=== PATIENT | female | born 1945 | race Caucasian/White ===

== ENCOUNTER 2018-07-10 08:59 | Day surgery (SDC) ==
[2018-07-10] MEDS: TETRACAINE 0.5% UNIT-DOSE OP PRN ×2 (10:20→11:00)
[2018-07-10] MEDS: BETADINE OPTH PREP OP PRN ×2 (10:20→11:01)
[2018-07-10] MEDS: CYCLOGYL 2% OPTH OP PRN ×3 (10:21→10:31)
[2018-07-10] MEDS ORDERED: LIDOCAINE 1%/PHENYLEPHRINE 1.5% BSS (SURGERY) INTRAOCULA ONE (10:26)
[2018-07-10] MEDS ORDERED: ZOFRAN 4 MG/2 ML IVP ONE (10:26)
[2018-07-10] MEDS ORDERED: BRIMONIDINE TARTRATE 0.2% OPTH SOL OP PRN (10:26)
[2018-07-10] MEDS ORDERED: LIDOCAINE 1% 20 ML MDV ID STA (10:26)
[2018-07-10] MEDS ORDERED: DEX-MOXI-KETOR OPTH INJ 1/0.5/0.4 MG/ML IO ONE (10:26)
[2018-07-10] MEDS ORDERED: BSS WITH EPINEPHRINE OP ONE (10:26)
[2018-07-10] MEDS ORDERED: SUBLIMAZE ONE (10:47)
[2018-07-10] MEDS ORDERED: ZOFRAN 4 MG/2 ML ONE (10:47)
[2018-07-10] MEDS ORDERED: DECADRON 4 MG/ML SDV ONE (10:47)
[2018-07-10] MEDS ORDERED: DIPRIVAN 20 ML VIAL IVP ONE (10:47)
[2018-07-10] MEDS ORDERED: VERSED ONE (10:47)
[2018-07-10 12:28] VITALS: TEMP 98.6
[2018-07-10 14:28] VITALS: BP 124/70
== END 2018-07-10 11:40 | disposition home or self-care (01) ==
LOC: SURG 08:59
PROVIDERS: ATTEND Ophthalmology
DX: H25.813 Combined forms of age-related cataract, bilateral (principal)